=== PATIENT | male | born 1980 | race Caucasian/White ===

== ENCOUNTER 2016-06-24 14:45 | Emergency (ER) | payer SELFPAY ==
[~2016-06-24] VITALS: Ht 195.6 cm; Wt 222.0 kg
[2016-06-24 14:54] VITALS: TEMP 98.5; Ht 195.6 cm; Wt 222.0 kg
--- NOTE | 2016-06-24 15:10 | NUR ---
REPORT TO FITZ CHURCH
--- NOTE | 2016-06-24 16:24 | NUR ---
PROVIDER Carlos FRANCO APRN AT BEDSIDE FOR H&P
--- NOTE | 2016-06-24 16:38 | NUR ---
HARVINDERO KIKI AT BEDSIDE FOR LOWER EXTREMITY DOPPLER
--- NOTE | 2016-06-24 17:21 | ERPDOC ---
Departure Disposition Decision Date: Jun 24, 2016 Disposition Decision Time: 17:29 Disposition: 01 DISCHARGED HOME, SELF-CARE Impression Impression Impression: Primary Impression: Varicose vein of leg Condition: Stable Seen By: Mid-level only Referrals: [facility] Patient Instructions: Superficial Thrombophlebitis (ED) Problems/Meds/Labs Reviewed?: Yes Medications reviewed and manag: Yes Additional Instructions: Elevate as much as possible. Compression stockings are often helpful . Follow up care ordered?: Yes Mental Status: Alert, Oriented HPI - Lower Extremity General Chief Complaint: Lower Extremity Pain Stated Complaint: LFT KNEE PAIN,SWOLLEN LEGS Time Seen by Provider: 16:05 Source: patient Exam Limitations: no limitations HPI - Lower Extremity Initial Comments Patient presents with complaints of left lower leg pain that has been ongoing for several months but he has recently noted a knot and warmth. Father has had hx of blood clots. Patient has not had any prolonged immobilization and does not report any other DVT risk factors. Patient is morbidly obese and bilateral legs are large with bilateral pedal edema which he states is normal for him. Denies pain in right leg. Will obtain ultrasound. Occurred At: home Onset/Timing: Gradual Duration: 1 week (more intense pain this last week. ) 1 - tenderness Method of Injury: other (no injury ) Modifying Factors/Context: IMPROVES WITH: immobilization, rest, WORSE WITH: movement Associated Symptoms: none Hx of Similar Symptoms: No Quality: aching Allergies: Coded Allergies: No Known Allergies (Unverified , 06/24/16) Past History Past Medical History Pt denies signifigant PMH PMH Comments patient denies PMH however does not regularly see a physician. Social History Substance Use Type: does not use Alcohol Intake: none Review of Systems Constitutional Constitutional: see HPI, DENIES: chills, dizziness, fever, weakness Eyes General: DENIES: burning, itching Lids/Accessories: DENIES: erythema, swelling Vision: DENIES: double vision ENMT Ears: DENIES: drainage, erythema, pain Hearing: DENIES: tinnitus Balance: DENIES: vertigo Sinuses: DENIES: congestion, pain, rhinorrhea Mouth/Throat: DENIES: scratchy throat, sore throat Jaw: DENIES: pain Cardiovascular Cardiac: DENIES: chest pain, orthopnea Rhythm/Rate: DENIES: irregular beat, palpitations, tachycardia Vascular: pedal edema (bilaterally; states left is worse than right ), see HPI Pulmonary Respiratory: DENIES: cough, pleuritic chest pain, sputum GI Upper Abdomen: DENIES: nausea, pain Lower Abdomen: DENIES: diarrhea, pain General: DENIES: dysuria, frequency, urgency Musculoskeletal General: pain, see HPI, tenderness Integumentary Skin: DENIES: rash Neurological General: DENIES: headache, numbness, weakness Hematologic/Lymphatic Hematologic/Lymphatic: DENIES: anemia All other Systems All Other Systems: Reviewed and Negative Physical Exam General General Nourishment: well developed, appears stated age, no acute distress, adult, obese Vitals and Pain First Documented Vital Signs Date Time Temp Pulse Resp B/P Pulse Ox O2 Delivery O2 Flow Rate FiO2 06/24/16 14:54 98.5 111 16 184/112 94 Room Air Weight: Kilograms: 222.000 Height (feet): 6 Height (inches): 5.00 Triage Pain Scale: Normal Exams: Head: Normocephalic w/o trauma Eyes: Pupils are PERRLA w/ EOMI, No scleral icterus, irritation, or foreign bodies noted ENMT: No facial trauma, nasal exudates, pharyngeal erythema, or exudates are noted Chest/Resp: Clear all whitman, with good airflow, and symmetry bilaterally CV: Regular rate and rhythm, without murmur or gallop, Pulses 2+ all extremities, capillary refill, <2 seconds all ext., no pedal edema noted Abdomen: Bowel sounds positive, soft, non-tender, non-distended, no hepatosplenomegaly, masses or bruits noted Lymphatic: No lymphadenopathy, or lymphedema noted Musculoskeletal: or deformity noted, good range of motion, all extremities Integumentary: No rashes, hives, or bruising noted, hair and nails, without abnormality Neurologic: Patient is alert, and oriented, cranial nerves, motor/sensory/ cerebellar, exams w/o gross deficits, to observation Psychiatric: Patient exhibits, appropriate attention, emotion and affect Musculoskeletal (brief) Musculoskeletal Brief: FOUND: tenderness (posterior left calf ) Differential Diagnoses Considering: Achilles Tendon Tear, Cellulitis, Compartment Syndrome, Contusion , DVT, Sprain, Strain, Gastrocnemius Tear Progress Results/Orders Orders Procedure Category Date Status Time Us Venous Duplex, US 06/24/16 Taken Lower Ext Lt Progress Progress ULTRASOUND NEGATIVE FOR DVT; ULTRASOUND INDICATES VARICOSE VEINS WITH THROMBOSED VARICOSITY IN THE CALF. AMBERLY FRANCO APRN Jun 24, 2016 17:21
[2016-06-24 17:44] VITALS: BP 159/106; PULSE 95; RESP 19; O2SAT 94
--- NOTE | 2016-06-25 08:22 | DI ---
Indication: ITS.REASON: swelling, pain in calf PROCEDURE: US VENOUS DUPLEX, LOWER EXT LT: Encounter: Initial Comparison: None Technique: Color Doppler duplex and grayscale sonographic imaging of the left lower extremity was performed. Findings: There is no evidence for acute deep venous thrombosis in the left thigh. Specifically, serial graded compression was performed from the inguinal ligament to the popliteal bifurcation, on the left thigh, demonstrating appropriate compressibility of the deep venous system. In addition, color and pulsed Doppler demonstrate appropriate spontaneous flow, variation with respiration, and augmentation with calf compression. At the ankle, normal flow is identified in the posterior tibial veins; these vessels are also normal in caliber. Thrombosed varicose veins are seen in the area of palpable lump. Impression: No evidence of acute DVT in the left lower limb. Superficial thrombophlebitis. There is a preliminary report by [facility]. .
== END 2016-06-24 17:44 | disposition home or self-care (01) ==
LOC: ED 14:45
DX: I83.812 Varicose veins of left lower extremity with pain (principal); I83.892 Varicose veins of left lower extremity with other complications